=== PATIENT | female | born 1955 | race Caucasian/White ===

== ENCOUNTER 2016-07-08 16:19 | Emergency (ER) | payer OTHER ==
--- NOTE | 2016-07-08 16:24 | PROVIDER DOCUMENTATION ---
HPI-General Adult - General Stated Complaint: WEAKNESS Time Seen by Provider: 07/08/16 16:20 Source: patient Allergies/Adverse Reactions: Patient Allergies Allergy/AdvReac Type Severity Reaction Status Date / Time bupropion HCl * Allergy Mild RASH Verified 07/08/16 16:46 [From Wellbutrin] amoxicillin trihydrate * Allergy Unknown Unknown Verified 07/08/16 16:46 [From Augmentin] potassium clavulanate * Allergy Unknown Unknown Verified 07/08/16 16:46 [From Augmentin] Cephalosporins AdvReac Severe Unknown Verified 07/08/16 16:46 doxycycline AdvReac Severe Unknown Verified 07/08/16 16:46 Home Medications: Home Medication List Medication Instructions Recorded Confirmed Last Taken Type Acetaminophen [Acetaminophen Extra 1,000 mg PO 4XDAY PRN PRN 08/09/13 05/07/16 05/06/16 10:00 History Strength] 1000 Amlodipine Besylate/Benazepril 32.5 mg PO DAILY 08/09/13 05/07/16 Unknown History [Amlodipine-Benazepril 10-20 mg] Amphet Asp/Amphet/D-Amphet 30 mg PO DAILY 08/09/13 05/07/16 05/05/16 History [Adderall 30 mg Tablet] 30 Ascorbic Acid [Vitamin C] 500 mg PO DAILY 08/09/13 05/07/16 Unknown History Biotin 1,000 mcg PO DAILY 08/09/13 05/07/16 Unknown History Ca Carbonate/Vitamin D3/Vit K 2 each PO DAILY 08/09/13 05/07/16 Unknown History [Viactiv Soft Chew Tablet] Clonazepam [Klonopin] 2 mg PO TID 08/09/13 05/07/16 05/05/16 History 2 Dicyclomine [Bentyl] 10 mg PO HS 08/09/13 05/07/16 05/05/16 History 10 Diphenoxylate/Atropine [Lomotil] 1 each PO 4XDAY PRN PRN 08/09/13 05/07/1605/05 History 1 Ergocalciferol (Vitamin D2) 50,000 unit PO DIRECTED 08/09/13 05/07/16 Unknown History [Vitamin D2] Estradiol 1 mg PO DAILY 08/09/13 05/07/16 Unknown History Estradiol Vaginal Cream [Estrace 1 applicator VAG HS 08/09/13 05/07/16 Unknown History Vaginal Cream] Ferrous Sulfate 325 mg PO BID 08/09/13 05/07/16 Unknown History Fluticasone 50 Mcg Nasal [place] 1 spray LEILA DAILY 08/09/13 05/07/16 05/06/16 10: 00 History [Flonase] 1 Folic Acid 1 mg PO DAILY 08/09/13 05/07/16 Unknown History LISINOpril [Prinivil] 20 mg PO HS 08/09/13 05/07/16 05/06/16 22:00 History 20 Lamotrigine [Lamictal] 200 mg PO TID 08/09/13 05/07/16 05/06/16 10:00 History 200 Loratadine [Claritin] 10 mg PO DAILY 08/09/13 05/07/16 05/06/16 10:00 History 10 Methylphenidate HCl [Ritalin] 30 mg PO DAILY 08/09/13 05/07/16 Unknown History Montelukast [Singulair] 10 mg PO DAILY 08/09/13 05/07/16 Unknown History Multivitamin [Multi-Vitamin Daily] 1 each PO DAILY 08/09/13 05/07/16 Unknown History Olanzapine [Zyprexa] 10 mg PO QHS 08/09/13 05/07/16 Unknown History Omeprazole [Prilosec] 40 mg PO DAILY 08/09/13 05/07/16 Unknown History Paroxetine HCl [Paxil] 60 mg PO DAILY 08/09/13 05/07/16 05/06/16 10:00 History 60 Promethazine [Phenergan] 25 mg PO Q6H PRN PRN 08/09/13 05/07/16 Unknown History Ropinirole HCl [Requip] 2 mg PO HS 08/09/13 05/07/16 Unknown History Solifenacin [Vesicare] 5 mg PO DAILY 08/09/13 05/07/16 Unknown History Sucralfate [Carafate] 1 gm PO 4XDAY 08/09/13 05/07/16 05/06/16 10:00 History 1 Furosemide 20 mg PO DAILY 03/30/14 05/07/16 Unknown History Nitrofurantoin 100 gm MC DAILY 03/30/14 05/07/16 Unknown History Phenazopyridine [Pyridium] 100 mg PO TID 03/30/14 05/07/16 Unknown History - History of Present Illness -Gen Adult Nature of Presenting Problems: patient is a 61 y/o F that presents via EMS for weakness. patient reports driving around all day from [place] to see in [place]( is not in [place] but [place]). patient reports getting lost and driving continuously around [place]. She made it to the [employer] [facility] due to running low on gas and she just felt so weak she couldn't go anymore. So she called EMS. She denies fever/chills, n/v/d. Location of Pain/Injury: reports: generalized Pain Radiation: reports: no radiation Quality of Pain: reports: none Severity: reports: moderate Onset/Duration: reports: unsure Timing: reports: still present, constant Context/Activities at Onset: reports: none Modifying Factors: improves with: nothing Associated Symptoms: reports: weakness. denies: diaphoresis, diarrhea, fatigue , fever/chills, genitourinary problems, nausea, shortness of breath, vomiting Similar Symptoms Previously?: No Recently seen or treated by another doctor?: No Review of Systems - Adult - REVIEW OF SYSTEMS - ADULT Constitutional: denies: chills, fever Eyes: denies: decreased vision, blurred vision, double vision Ears, Nose, Mouth & Throat: denies: sinus problem, hoarseness, throat pain Cardiovascular: denies: chest pain, palpitations, syncope Respiratory: denies: cough, shortness of breath, wheezing Gastrointestinal: denies: abdominal pain, diarrhea, nausea, vomiting Genitourinary: reports: no symptoms reported Musculoskeletal: reports: muscle weakness. denies: bone pain, neck pain Integumentary: reports: no symptoms reported Neurological: reports: other (ams). denies: dizziness/vertigo, headache/ migraines, seizure Psychiatric: reports: no symptoms reported Endocrine: reports: no symptoms reported Hematologic/Lymphatic: reports: no symptoms reported Allergic/Immunologic: reports: no symptoms reported All Other Systems: Reviewed and Negative Past History - Adult - PAST MEDICAL HISTORY-ADULT Review of Records: reports: Old Records Reviewed, Nursing Assessment Review, Medications Reviewed Cardiovascular: reports: HTN Respiratory: reports: asthma, COPD Gastrointestinal: reports: GERD Neurological: reports: other (sleep apnea) Psychiatric: reports: bipolar - PRIOR SURGERIES/PROCEDURES Surgical/Procedure History: reports: cholecystectomy, other (mastectomy, gastric bypass) - IMMUNIZATION STATUS Childhood Immunizations: See Nurse Assessment Flu Vaccine: See Nurse Assessment - FAMILY HISTORY Family History: reviewed, not pertinent - SOCIAL HISTORY Smoking: non-smoker Living Situation: family Physical Exam-General - PHYSICAL EXAM-ADULT Initial Vital Signs Reviewed: Yes - CONSTITUTIONAL General Appearance: no apparent distress, lethargic - EYES Eyes: PERRL/EOMI, pink conjunctivae - HEAD, EARS, NOSE, MOUTH & THROAT HENMT: normocephalic/atraumatic, moist mucous membranes, normal ENT inspection - NECK Neck: full range of motion, normal inspection - RESPIRATORY Respiratory: lungs clear, normal breath sounds, no respiratory distress, no accessory muscle use - CARDIOVASCULAR Cardiovascular: regular rate, rhythm, no edema, no murmur - GASTROINTESTINAL (ABDOMEN) Abdominal Exam: normal bowel sounds, non tender, soft - MUSCULOSKELETAL Extremity: normal range of motion, normal inspection, no pedal edema, normal capillary refill - SKIN Integumentary: normal color, warm/dry - NEUROLOGIC Neurologic: grossly normal, no motor/sensory deficits - PSYCHIATRIC Psych/Mental Status: normal mood/affect, normal thought content, normal thought process, oriented x 3 Progress - PLAN OF CARE/RESULTS Progress/Plan/Lab Results: plan of care-labs, ct head Vital Signs Temp Pulse Resp BP Pulse Ox 07/08/16 16:22 98.5 F 121 H 18 133/92 100 bupropion HCl * [From Wellbutrin] Allergy (Mild, Verified 07/08/16 16:46) RASH amoxicillin trihydrate * [From Augmentin] Allergy (Unknown, Verified 07/08/16 16 :46) Unknown potassium clavulanate * [From Augmentin] Allergy (Unknown, Verified 07/08/16 16: 46) Unknown Cephalosporins Adverse Reaction (Severe, Verified 07/08/16 16:46) Unknown "serum sickness" doxycycline Adverse Reaction (Severe, Verified 07/08/16 16:46) Unknown "serum sickness" Acetaminophen [Acetaminophen Extra Strength] 1,000 mg PO 4XDAY PRN PRN 08/09/13 Amlodipine Besylate/Benazepril [Amlodipine-Benazepril 10-20 mg] 32.5 mg PO DAILY 08/09/13 Amphet Asp/Amphet/D-Amphet [Adderall 30 mg Tablet] 30 mg PO DAILY 08/09/13 Ascorbic Acid [Vitamin C] 500 mg PO DAILY 08/09/13 Biotin 1,000 mcg PO DAILY 08/09/13 Ca Carbonate/Vitamin D3/Vit K [Viactiv Soft Chew Tablet] 2 each PO DAILY Clonazepam [Klonopin] 2 mg PO TID 08/09/13 Dicyclomine [Bentyl] 10 mg PO HS 08/09/13 Diphenoxylate/Atropine [Lomotil] 1 each PO 4XDAY PRN PRN 08/09/13 Ergocalciferol (Vitamin D2) [Vitamin D2] 50,000 unit PO DIRECTED 08/09/13 Estradiol 1 mg PO DAILY 08/09/13 Estradiol Vaginal Cream [Estrace Vaginal Cream] 1 applicator VAG HS 08/09/13 Ferrous Sulfate 325 mg PO BID 08/09/13 Fluticasone 50 Mcg Nasal [place] [Flonase] 1 spray LEILA DAILY 08/09/13 Folic Acid 1 mg PO DAILY 08/09/13 LISINOpril [Prinivil] 20 mg PO HS 08/09/13 Lamotrigine [Lamictal] 200 mg PO TID 08/09/13 Loratadine [Claritin] 10 mg PO DAILY 08/09/13 Methylphenidate HCl [Ritalin] 30 mg PO DAILY 08/09/13 Montelukast [Singulair] 10 mg PO DAILY 08/09/13 Multivitamin [Multi-Vitamin Daily] 1 each PO DAILY 08/09/13 Olanzapine [Zyprexa] 10 mg PO QHS 08/09/13 Omeprazole [Prilosec] 40 mg PO DAILY 08/09/13 Paroxetine HCl [Paxil] 60 mg PO DAILY 08/09/13 Promethazine [Phenergan] 25 mg PO Q6H PRN PRN 08/09/13 Ropinirole HCl [Requip] 2 mg PO HS 08/09/13 Solifenacin [Vesicare] 5 mg PO DAILY 08/09/13 Sucralfate [Carafate] 1 gm PO 4XDAY 08/09/13 Furosemide 20 mg PO DAILY 03/30/14 Nitrofurantoin 100 gm MC DAILY 03/30/14 Phenazopyridine [Pyridium] 100 mg PO TID 03/30/14 I&O 07/07/16 07/08/16 07/09/16 06:59 06:59 06:59 Output Total 80 Balance -80 Laboratory 07/08/16 07/08/16 17:01 17:01 WBC 3.46 L RBC 3.84 L Hgb 11.0 L Hct 36.3 L MCV 94.5 MCH 28.6 MCHC 30.3 L RDW Std Deviation 14.5 Plt Count 256 MPV 10.8 H Immature Gran % (Auto) 0.0 Neut % (Auto) 40.9 L Lymph % (Auto) 40.8 [place] % (Auto) 9.0 Eos % (Auto) 8.1 Baso % (Auto) 1.2 H Immature Gran # (Auto) 0.00 Neut # (Auto) 1.42 Lymph # (Auto) 1.41 [place] # (Auto) 0.31 Eos # (Auto) 0.28 Baso # (Auto) 0.04 Sodium 141 Potassium 4.8 Chloride 108 H Carbon Dioxide 21 L Anion Gap 12 BUN 26 H Creatinine 1.4 H Estimated GFR/1.73 m2 38 BUN/Creatinine Ratio 19 Glucose 42 L Calculated Osmolality 283 Calcium 8.6 L Total Bilirubin 0.23 AST 34 H ALT 24 Alkaline Phosphatase 120 H Total Protein 6.0 L Albumin 3.6 Globulin 2.4 Albumin/Globulin Ratio 1.5 Orders Category Date Time Status HEAD W/O CONTRAST [CT] Stat Exams 07/08/16 16:21 Draft CBC WITH ELECTRONIC DIFF [HEME] Stat Lab 07/08/16 17:01 Completed CMP [COMPREHENSIVE METABOLIC PANEL] [CHEM] Stat Lab 07/08/16 17:01 Completed URINALYSIS W/POSS RFLX CULT [URINALYSIS] Stat Lab 07/08/16 17:34 Ordered URINE DRUG SCREEN Routine Lab 07/08/16 17:44 Received Dextrose 50% Syringe [D50w Syringe] Med 07/08/16 17:41 Discontinued 25 ml IV NOW ONE Dextrose 50% Syringe [D50w Syringe] Med 07/08/16 17:42 Discontinued 50 ml .ROUTE .STK-MED ONE pt will be d/c home f/u with pcp, pt was clinically stable, understood instructions and results - REASSESSMENT Reassessment #1 Time Reassessed: 17:42 Status: improving Reassessment Comment: talking falls asleep(narcolepsy), new orders placed - CT/MRI 1 CT Study: Head Impression: Normal CT Results: nad Departure - Departure Time of Disposition Order: 17:44 DIAGNOSIS: Tired Narcolepsy Qualifiers: Narcolepsy type: primary with cataplexy Qualified Code(s): 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 These instructions are being provided to you so you can have an understanding of how to care for yourself upon discharge. Upon discharge from the Emergency Department, you are responsible for making arrangements for follow-up care by a physician of your choice. Take all prescribed medications as directed. Return to the Emergency Department immediately for any new or worsening symptoms. You may call the Physician Referral phone number at [phone] to obtain a list of Physicians who are taking new patients. Referrals: Michel Potts [Primary Care Provider] - Call for Appoint. 1-2days Instructions: Fatigue Attestation - Scribe Verification/Attestation Scribe:: Devante Garner Acting as Scribe for:: Idalmis Yin Scribkatey documention review:: This chart was documented by a scribe and accurately reflects the service the provider performed and the decisions made by the provider. Physician Attestation - Physician Attestation I, the provider, attest to the following statement:: Idalmis Yin Physician documentation Attestation:: This documentation recorded by the scribe accurately reflects the service I personally performed and the decisions made by me.
[2016-07-08 17:07] LABS: MANUAL DIFF NEEDED? NO
[2016-07-08 17:14] LABS: BASO% 1.2 % (0.0-0.8); EOS# 0.28 X1000 (0.0-0.7); EOS% 8.1 % (0.0-10.0); HEMATOCRIT 36.3 % (37.0-47.0); LYMPH# 1.41 X1000 (1.2-3.4); LYMPH% 40.8 % (20.5-51.1); MCH 28.6 PG (27-31); MCHC 30.3 g/dL (33-37); MCV 94.5 FL (81-99); MONO# 0.31 X1000 (0.11-0.59); MPV 10.8 FL (7.4-10.4); NEUT% 40.9 % (42.2-75.2); PLT 256 X1000 (130-400); RBC 3.84 XMIL (4.2-5.4)
[2016-07-08 17:33] LABS: ALBUMIN 3.6 g/dL (3.5-5.0); CALCIUM 8.6 mg/dL (8.8-10.2); POTASSIUM 4.8 mmol/L (3.5-5.1); TOTAL BILIRUBIN 0.23 mg/dL (0.20-1.00)
--- NOTE | 2016-07-08 17:37 | Diag Imaging Result Document ---
PROCEDURE NAME: HEAD W/O CONTRAST - 07/08/[address]: COMPARISON: None. FINDINGS: The ventricles and sulci are normal in size and contour. There is no mass, hemorrhage, or evidence of acute ischemia. The bony calvaria is intact. The visualized paranasal sinuses and mastoid air cells are clear. IMPRESSION: Negative head CT.
[2016-07-08] MEDS ORDERED: D50W SYRINGE IV ONE (17:41)
[2016-07-08] MEDS ORDERED: D50W SYRINGE ONE (17:42)
[2016-07-08 17:52] LABS: BILIRUBIN URINE NEGATIVE (NEGATIVE); BLOOD URINE NEGATIVE (NEGATIVE); COLOR YELLOW; GLUCOSE URINE NEGATIVE (NEGATIVE); LEUKOCYTES URINE NEGATIVE (NEGATIVE); NITRITE URINE NEGATIVE (NEGATIVE); PH URINE 5.5; PROTEIN URINE TRACE mg/dL (NEGATIVE); SP GRAVITY URINE 1.025; TURBIDITY URINE CLEAR (CLEAR); URINE CULTURE NEEDED? NO; URINE MICRO REVIEW NEEDED? NO; URINE SOURCE CLEAN CATCH; UROBILINOGEN URINE NORMAL (NORMAL)
[2016-07-08 17:53] LABS: UR EPITHELIAL CELLS <10 /HPF (<10); URINE BACTERIA NEGATIVE /HPF; URINE RBC <10 /HPF (<10); URINE WBC <10 /HPF (<10)
[2016-07-08 18:24] LABS: UR AMPHETAMINES QUAL PRESUMPTIVE POSITIVE (NONE DETECT); UR BARBITUATES QUAL NONE DETECTED (NONE DETECT); UR BENZODIAZEPIN QUAL PRESUMPTIVE POSITIVE (NONE DETECT); UR CANNABINOIDS QUAL NONE DETECTED (NONE DETECT); UR COCAINE QUAL NONE DETECTED (NONE DETECT); UR METHADONE QUAL NONE DETECTED (NONE DETECT); UR OPIATES QUAL NONE DETECTED (NONE DETECT); UR OXYCODONE QUAL NONE DETECTED (NONE DETECT); UR PCP QUAL PRESUMPTIVE POSITIVE (NONE DETECT)
[2016-07-08 20:32] VITALS: BP 124/85
== END 2016-07-08 20:33 | disposition home or self-care (01) ==
LOC: ED 16:19
DX: G47.411 Narcolepsy with cataplexy (principal); R53.83 Other fatigue; M62.81 Muscle weakness (generalized); R41.82 Altered mental status, unspecified; I10 Essential (primary) hypertension; J44.9 Chronic obstructive pulmonary disease, unspecified; K21.9 Gastro-esophageal reflux disease without esophagitis; F31.9 Bipolar disorder, unspecified; Z90.10 Acquired absence of unspecified breast and nipple; Z98.84 Bariatric surgery status; Z79.899 Other long term (current) drug therapy; Z79.51 Long term (current) use of inhaled steroids
CPT/HCPCS: 70450; 80053; 81001; 82948; 85025; G0480; 80324; 80345; 80346; 80349; 80353; 80358; 80361; 80365; 83992